=== PATIENT | male | born 1950 | race Caucasian/White ===

== ENCOUNTER 2017-04-20 10:36 | Emergency (ER) | payer OTHER ==
[2017-04-20 10:51] VITALS: BP 124/74
--- NOTE | 2017-04-20 10:55 | UC ---
Eye Complaint HPI - HPI Summary HPI Summary: 66 year old male presents with complains of right eye redness/stye. - History of Current Complaint Chief Complaint: UCEye Stated Complaint: RT EYE COMPLAINT Time Seen by Provider: 04/20/17 10:53 Hx Obtained From: Patient Onset/Duration: Sudden Onset Severity Initially: Moderate Severity Currently: Moderate - Allergies/Home Medications Allergies/Adverse Reactions: Allergies Allergy/AdvReac Type Severity Reaction Status Date / Time No Known Allergies Allergy Verified 04/20/17 10:51 PMH/Surg Hx/FS Hx/Imm Hx Previously Healthy: Yes - Surgical History Surgical History: Yes Surgery Procedure, Year, and Place: denies - Family History Known Family History: Positive: Other - mom of [place] in her 80s dad in his sleep at 93 - Social History Alcohol Use: Daily Substance Use Type: None Smoking Status (MU): Heavy Every Day Tobacco Smoker Type: Cigarettes Amount Used/How Often: 1 ppd Review of Systems Constitutional: Negative Skin: Negative Eyes: Negative ENT: Sore Throat, Nasal Discharge, Sinus Congestion, Sinus Pain/Tenderness Respiratory: Negative Cardiovascular: Negative Gastrointestinal: Negative Genitourinary: Negative Motor: Negative Neurovascular: Negative Musculoskeletal: Negative Neurological: Negative Psychological: Negative All Other Systems Reviewed And Are Negative: Yes Physical Exam Triage Information Reviewed: Yes Vital Signs: Initial Vital Signs Temp 36.6 C 04/20/17 10:46 Pulse 68 04/20/17 10:46 Resp 18 04/20/17 10:46 BP 124/74 04/20/17 10:46 Pulse Ox 98 04/20/17 10:46 Vital Signs Reviewed: Yes Eyes: Positive: Conjunctiva Inflamed, Discharge, Other: - right lower lid stye ENT: Positive: Pharyngeal erythema, Nasal congestion, Nasal drainage, Sinus tenderness, Uvula midline Dental Exam: Normal Neck exam: Normal Neck: Positive: 1 Respiratory Exam: Normal Cardiovascular Exam: Normal Abdominal Exam: Normal Musculoskeletal Exam: Normal Neurological Exam: Normal Psychological Exam: Normal Skin Exam: Normal Eye Complaint Course/Dx - Differential Dx/Diagnosis Provider Diagnoses: right lower eyelid style. right eye conjunctivitis Discharge - Discharge Plan Condition: Stable Disposition: HOME Prescriptions: Erythromycin OPTH OINT* [Erythromycin 0.5% OPTH OINT*] 1 applic RIGHT EYE TID # 1 tube Polymyx/Trimethoprim OPTH* [Polytrim OPHTH*] 1 drop RIGHT EYE Q6H #1 btl Patient Education Materials: Stye (ED), Conjunctivitis (ED) Referrals: Tra Gordillo MD [Primary Care Provider] -
== END 2017-04-20 11:25 | disposition home or self-care (01) ==
LOC: UCCORT 10:36
DX: H00.012 Hordeolum externum right lower eyelid (principal); H10.9 Unspecified conjunctivitis
CPT/HCPCS: 99212; G0463

== ENCOUNTER 2018-07-24 10:21 | Emergency (ER) | payer MEDICARE, MEDICAID ==
[2018-07-24 10:48] VITALS: BP 143/85
--- NOTE | 2018-07-24 11:00 | UC ---
Respiratory Complaint HPI - HPI Summary HPI Summary: 68-year-old male comes in with chief complaint of chest congestion and white creamy sputum. He is a smoker which makes his symptoms worse. No recent fevers. Is not tried any [id number] medications. No complaint of any chest pain. - History of Current Complaint Chief Complaint: UCRespiratory Stated Complaint: COUGH, CONGESTION Time Seen by Provider: 07/24/18 10:52 Pain Intensity: 0 - Allergies/Home Medications Allergies/Adverse Reactions: Allergies Allergy/AdvReac Type Severity Reaction Status Date / Time No Known Allergies Allergy Verified 07/24/18 10:42 Home Medications: Home Medications Ranitidine TAB (NF) [Zantac TAB (NF)] 150 mg PO BID PRN 07/24/18 [History Confirmed 07/24/18] guaiFENesin ER TAB [Mucinex*] 600 mg PO BID PRN 07/24/18 [History Confirmed ] PMH/Surg Hx/FS Hx/Imm Hx Previously Healthy: Yes GI/ History: Gastroesophageal Reflux - Surgical History Surgical History: None Surgery Procedure, Year, and Place: denies - Family History Known Family History: Positive: Other - mom of [place] in her 80s dad in his sleep at 93 - Social History Alcohol Use: 6-12 "every other daily" Substance Use Type: None Smoking Status (MU): Heavy Every Day Tobacco Smoker Type: Cigarettes Amount Used/How Often: 1 PPD Length of Time of Smoking/Using Tobacco: Since Age 20 Review of Systems All Other Systems Reviewed And Are Negative: Yes Constitutional: Positive: Negative Skin: Positive: Negative Eyes: Positive: Negative ENT: Positive: Nasal Discharge, Sinus Congestion Respiratory: Positive: Other - SEE HPI Cardiovascular: Positive: Negative Gastrointestinal: Positive: Negative Motor: Positive: Negative Neurovascular: Positive: Negative Musculoskeletal: Positive: Negative Neurological: Positive: Negative Psychological: Positive: Negative Is Patient Immunocompromised?: No Physical Exam Triage Information Reviewed: Yes Appearance: Well-Appearing, No Pain Distress, Well-Nourished Vital Signs: Initial Vital Signs Temp 98 F 07/24/18 10:40 Pulse 78 07/24/18 10:40 Resp 16 07/24/18 10:40 BP 143/85 07/24/18 10:40 Pulse Ox 100 07/24/18 10:40 Vital Signs Reviewed: Yes Eye Exam: Normal Eyes: Positive: Conjunctiva Clear ENT: Positive: Pharyngeal erythema, Nasal congestion, Nasal drainage, TMs normal Neck exam: Normal Neck: Positive: Supple Respiratory: Positive: Lungs clear, Normal breath sounds, No respiratory distress Cardiovascular: Positive: RRR Musculoskeletal Exam: Normal Musculoskeletal: Positive: Strength Intact, ROM Intact Neurological Exam: Normal Neurological: Positive: Alert, Muscle Tone Normal Psychological Exam: Normal Psychological: Positive: Normal Response To Family, Age Appropriate Behavior Skin Exam: Normal UC Diagnostic Evaluation - Laboratory O2 Sat by Pulse Oximetry: 100 Respiratory Course/Dx - Course Course Of Treatment: . THE PATIENT WISHES TO BE ON ANTIBIOTIC AT THIS TIME. STATES [facility] WORKS FOR HIM. - Differential Dx/Diagnosis Provider Diagnosis: Bronchitis Discharge - Sign-Out/Discharge Documenting (check all that apply): Patient Departure All imaging exams completed and their final reports reviewed: No Studies - Discharge Plan Condition: Stable Disposition: HOME Prescriptions: Penicillin VK 500 MG TAB(NF) [Penicillin VK 500 mg Tab] 500 mg PO QID #40 tab Patient Education Materials: Acute Bronchitis (ED) Referrals: Alek Rm MD [Primary Care Provider] - Additional Instructions: FOLLOW UP WITH YOUR DOCTOR IF NOT COMPLETELY IMPROVED. GET RECHECKED FOR ANY WORSENING OF YOUR CONDITION OR QUESTIONS OR CONCERNS. - Billing Disposition and Condition Condition: STABLE Disposition: Home
== END 2018-07-24 11:14 | disposition home or self-care (01) ==
LOC: UCCORT 10:21
DX: J40 Bronchitis, not specified as acute or chronic (principal); F17.210 Nicotine dependence, cigarettes, uncomplicated; K21.9 Gastro-esophageal reflux disease without esophagitis
CPT/HCPCS: 99212; G0463

== ENCOUNTER 2019-01-10 08:37 | Emergency (ER) | payer MEDICARE, MEDICAID | END 2019-01-10 08:50 | disposition left against medical advice (07) | LOC: UCCORT 08:37 | DX: H57.89 Other specified disorders of eye and adnexa (principal); Z53.21 Procedure and treatment not carried out due to patient leaving prior to being seen by health care provider ==